=== PATIENT | female | born 1980 | race Two or more races ===

== ENCOUNTER 2019-08-30 02:44 | Emergency (ER) | payer OTHER ==
[~2019-08-30] VITALS: Ht 167.6 cm; Wt 74.8 kg
[2019-08-30] MEDS ORDERED: DUI500 PO (06:36)
== END 2019-08-30 06:43 | disposition home or self-care (01) ==
LOC: ER 02:44
DX: S01.422A Laceration with foreign body of left cheek and temporomandibular area, initial encounter (principal); W51.XXXA Accidental striking against or bumped into by another person, initial encounter; Y93.89 Activity, other specified; Y92.488 Other paved roadways as the place of occurrence of the external cause; Y99.8 Other external cause status
CPT/HCPCS: 12051; G0168